=== PATIENT | female | born 1950 | race Caucasian/White ===

== ENCOUNTER → 2019-08-15 | Outpatient (CLI) | payer MEDICARE, OTHER ==
[~2019-08-15] MED LIST: CRESTOR10 MG PO; DIPH25CA58 PO; HYDR10TA2 PO; LISI1TAB37 PO; VITA50004 PO
== END | disposition home or self-care (01) ==
LOC: LAB 15:00
PROVIDERS: ATTEND Registered Nurse
DX: Z11.59 Encounter for screening for other viral diseases (principal)
CPT/HCPCS: U0003-CS

== ENCOUNTER → 2019-08-19 | Day surgery (SDC) | payer MEDICARE, OTHER ==
[~2019-08-19] MED LIST changes: +BALANCED SALT IRRIG OPHTH SOLN 15 ML BOTTLE. IRR ONE; +CATARACT OPHTH GEL 0.5 ML SYRINGE. OS ONE; +CHONDROIT-SOD-HYALURONATE KIT. OS ONE; +EPINEPHrine AMPULE 0.5 MG in BALANCED SALT IRRIG SOLN PLUS 500 ML IO ONE; +ERYTHROMYCIN 0.5% OPHTH OINTMENT 1GM TUBE. OS ONE; +HYALURONIDASE 75UNITS in LIDOCAINE 2% PF OPHTH 10 ML SYRINGE. OS ONE; +IPRATRPIUM/ALBUTEROL 0.5/2.5MG 3 ML NEBU. NEB PRN; +IV RINGERS SOLUTION,LACTATED 1,000 ML IV SCH; +KETOROLAC TROMETHAMINE 0.5% OPHTH SOLUTION BOTTLE. ONE; +KETOROLAC TROMETHAMINE 0.5% OPHTH SOLUTION BOTTLE. OS SCH; +POVIDONE-IODINE 5% OPHTH SOLUTION 30ML BOTTLE. OS ONE; +PROPOFOL 10,000 MCG/ML (20ML) VIAL IV ONE; +TETRACAINE 0.5% OPHTH SOLUTION 4ML BOTTLE. OS ONE; +TETRACAINE 0.5% OPHTH SOLUTION 4ML BOTTLE. OU ONE; +TOBRAMYCIN 0.3% OPHTH SOLUTION 5ML BOTTLE. OS SCH; +prednisoLONE ACETATE 1% OPHTH SUSPENSION 5ML BOTTLE. ONE; +prednisoLONE ACETATE 1% OPHTH SUSPENSION 5ML BOTTLE. OS SCH
[2019-08-19] MEDS: TOBRAMYCIN 0.3% OPHTH SOLUTION 5ML BOTTLE. OS SCH ×3 (09:48→09:54)
--- NOTE | 2019-08-19 10:30 | PDOC4 ---
Phaco IOL/Cataract/OS Date of Procedure: Aug 19, 2019 Preoperative Diagnosis: Senile Cataract, Left Eye Postoperative Diagnosis: Senile Cataract, Left Eye Anesthesia: Local (Block) with monitored anesthesia care Surgeon: Tsering Ni D.O. Procedure: Left Phacoemulsification with Intraocular Lens Implant Findings: Senile Cataract Indications: Worsening vision interfering with patient's lifestyle Narrative: After discussing the risks, complications and alternatives, including but not limited to loss of vision, infection, bleeding, swelling, anesthetic reaction, capsule rupture with vitreous loss, etc., the patient was given a peribulbar block under mild IV sedation and cardiac monitoring. Pressure was applied to the eye for approximately 10 minutes. The patient was transferred to the main operating room and was prepped and draped in the usual sterile fashion and positioned under the microscope. A lid speculum was placed. A temporal clear corneal incision was made with a keratome and viscoelastic was injected into the eye. A side port incision was made. A continuous tear capsulorrhexis was performed, then hydrodissection was accomplished with balanced salt solution. The phacoemulsification needle was placed in the eye and the nucleus was emulsified. The remaining cortical material was removed with the irrigation and aspiration apparatus. The capsule was polished as needed. The posterior capsule was noted to be clean and intact. Viscoelastic was injected into the eye inflating the capsular bag. An intraocular lens was injected into the eye, unfolding as desired and was positioned in the capsular bag. The viscoelastic was aspirated from the eye. The wound edges were hydrated with balanced salt solution and there were no leaks. Viscoelastic was injected over the limbal incisions. Antibiotic and steroid were placed on the eye. The lid speculum was removed, the eye patched shut and a [place] shield applied. There were no complications and the patient was taken to the PACU in good condition. TSERING NI DO Aug 19, 2019 10:30
[2019-08-19 10:48] VITALS: BP 135/87
== END | disposition home or self-care (01) ==
LOC: SURG 08:56
PROVIDERS: ATTEND Ophthalmology
DX: H25.89 Other age-related cataract (principal)
CPT/HCPCS: 66984; J0171; J2704; V2632

== ENCOUNTER 2020-04-05 14:17 | Inpatient (IN) | payer MEDICARE, OTHER ==
[~2020-04-05] VITALS: Ht 160 cm; Wt 102.0 kg
[~2020-04-05 14:17] MED LIST changes: -BALANCED SALT IRRIG OPHTH SOLN 15 ML BOTTLE. IRR ONE; -CATARACT OPHTH GEL 0.5 ML SYRINGE. OS ONE; -CHONDROIT-SOD-HYALURONATE KIT. OS ONE; -EPINEPHrine AMPULE 0.5 MG in BALANCED SALT IRRIG SOLN PLUS 500 ML IO ONE; -ERYTHROMYCIN 0.5% OPHTH OINTMENT 1GM TUBE. OS ONE; -HYALURONIDASE 75UNITS in LIDOCAINE 2% PF OPHTH 10 ML SYRINGE. OS ONE; -IPRATRPIUM/ALBUTEROL 0.5/2.5MG 3 ML NEBU. NEB PRN; -IV RINGERS SOLUTION,LACTATED 1,000 ML IV SCH; -KETOROLAC TROMETHAMINE 0.5% OPHTH SOLUTION BOTTLE. ONE; -KETOROLAC TROMETHAMINE 0.5% OPHTH SOLUTION BOTTLE. OS SCH; -POVIDONE-IODINE 5% OPHTH SOLUTION 30ML BOTTLE. OS ONE; -PROPOFOL 10,000 MCG/ML (20ML) VIAL IV ONE; -TETRACAINE 0.5% OPHTH SOLUTION 4ML BOTTLE. OS ONE; -TETRACAINE 0.5% OPHTH SOLUTION 4ML BOTTLE. OU ONE; -TOBRAMYCIN 0.3% OPHTH SOLUTION 5ML BOTTLE. OS SCH; -prednisoLONE ACETATE 1% OPHTH SUSPENSION 5ML BOTTLE. ONE; -prednisoLONE ACETATE 1% OPHTH SUSPENSION 5ML BOTTLE. OS SCH
[2020-04-05] MEDS ORDERED: IV NORMAL SALINE 1,000ML 1,000 ML IV ONE (16:15)
--- NOTE | 2020-04-05 16:41 | RAD ---
EXAM: CT Abdomen and Pelvis without IV contrast INDICATION: Reason: vomiting / Spl. Instructions: / History: TECHNIQUE: Multi-detector row CT images were acquired from the lung bases through the abdomen and pel vis without the use of IV contrast. Sagittal and coronal images were acquired from the transaxial eileen a. All CT scans performed at this facility utilize dose optimization techniques as appropriate to the exam, including the following: Automated exposure control and adjustment of the mA and/or KV accordi ng to patient size (this includes techniques or standardized protocols for targeted exams where dose is indication/reason for exam). ORAL CONTRAST: None COMPARISON: None FINDINGS: The absence of IV contrast limits evaluation of soft tissue pathology. LOWER CHEST: Calcified granuloma in the medial right lower lung. LIVER: Fatty BILIARY SYSTEM: Gallbladder is unremarkable. Bile ducts are not dilated. PANCREAS: Unremarkable SPLEEN: Scattered splenic calcifications. No splenomegaly or mass identified. ADRENALS: Unremarkable KIDNEYS & URETERS: Unremarkable BLADDER: Incompletely bladder distention resulting in wall thickening. REPRODUCTIVE ORGANS: Unremarkable GASTROINTESTINAL: There are multiple small bowel loops that appear to cluster against the uterine fun dus but no findings of bowel obstruction, perforation or acute inflammation are seen. Small hiatal he rnia is present There are scattered colonic diverticuli. The appendix is normal. MESENTERY/PERITONEUM/RETROPERITONEUM: Unremarkable VASCULAR: Unremarkable LYMPH NODES: No adenopathy OSSEOUS & SOFT TISSUES: Multilevel spinal degenerative spondylosis with mild rightward convexity sco liotic curvature, apex at L2-L3. Right total hip arthroplasty. IMPRESSION: Nonspecific clustering of small bowel loops in the pelvis against the uterine fundus without findings of bowel obstruction or acute inflammation. If there is a high index of suspicion for a partial kenya l obstruction, small bowel follow-through could be pursued with CT with oral contrast. Otherwise no a cute findings in the abdomen or pelvis shown on noncontrast CT. Discussed with Brittany Boo by telephone at 4:26 PM on 04/05/2020 Electronically signed by: Tosha Simpson MD (04/05/2020 4:39 PM) [id number]
--- NOTE | 2020-04-05 16:42 | RAD ---
EXAM: XR CHEST 2V INDICATION: Reason: weakness / Spl. Instructions: / History: . TECHNIQUE: PA and lateral views COMPARISON: 12/20/2004 FINDINGS: The heart size is normal. The great vessels appear unremarkable. There is no hilar or mediastinal mass. The lungs are clear. There is no pleural effusion or pneumothorax. There are no significant osseous abnormalities. IMPRESSION: No active cardiopulmonary disease. Electronically signed by: Tosha Simpson MD (04/05/2020 4:40 PM) [id number]
[2020-04-05 17:04] LABS: BASO % 0 % (0-3); CALCIUM 11.1 mg/dL (8.5-10.1); CREATININE 1.4 mg/dL (0.6-1.0); EOS % 0 % (0-3); GFR 37.3; HEMATOCRIT 39.6 % (36.0-47.0); HEMOGLOBIN 13.2 g/dL (12.0-15.5); LYMPH % 10 % (24-48); MEAN CORPUSCULAR HEMOGLOBIN 34 pg (25-35); MEAN CORPUSCULAR HGB CONC 34 g/dL (31-37); MEAN CORPUSCULAR VOLUME 102 fL (79-100); MONO # 1.1 x10^3/uL (0.0-1.1); MONO % 12 % (0-9); NEUT # 7.4 x10^3uL (1.8-7.7); NEUT % 78 % (31-73); PLATELET COUNT 164 x10^3/uL (140-400); POTASSIUM 4.1 mmol/L (3.5-5.1); RED BLOOD COUNT 3.87 x10^6/uL (3.50-5.40); RED CELL DISTRIBUTION WIDTH 13.6 % (11.5-14.5); WHITE BLOOD COUNT 9.5 x10^3/uL (4.0-11.0)
[2020-04-05 17:09] LABS: BACTERIA,URINE FEW /HPF (0-FEW); BILIRUBIN,URINE SMALL (NEG); CLARITY,URINE HAZY; COLOR,URINE AMBER; GLUCOSE,URINE NEG (NEG); NITRITE,URINE POS (NEG); SQUAMOUS EPITHELIAL CELL,UR MANY /LPF
[2020-04-05 17:10] LABS: ALBUMIN 4.1 g/dL (3.4-5.0); ALBUMIN/GLOBULIN RATIO 1.1 (1.0-1.7); TOTAL BILIRUBIN 1.2 mg/dL (0.2-1.0); TOTAL PROTEIN 7.9 g/dL (6.4-8.2)
--- NOTE | 2020-04-05 17:15 | PHYS DOC ---
Past History Past Medical History: Hypertension, Other Additional Past Medical Histor: Heart Murmur, High Cholesterol Past Surgical History: Other Additional Past Surgical Histo: Lap band removal in 2016 Alcohol Use: Heavy General Adult EDM: Chief Complaint: MULTIPLE COMPLAINTS HPI: HPI: Patient is a 69-year-old female who presents with burning mouth pain for the past month. Patient states "I am unable to eat anything because it hurts too bad in my mouth". Patient reports intermittent nausea and vomiting. Patient states that she has lost 35 pounds this month due to not being able to eat. Patient denies any recent illness. Review of Systems: Review of Systems: Constitutional: Denies fever or chills Eyes: Denies change in visual acuity HENT: Denies nasal congestion or sore throat, burning pain in mouth Respiratory: Denies cough or shortness of breath Cardiovascular: Denies chest pain or edema GI: Denies abdominal pain, nausea, vomiting, bloody stools or diarrhea : Denies dysuria Musculoskeletal: Denies back pain or joint pain Integument: Denies rash Neurologic: Denies headache, focal weakness or sensory changes Endocrine: Denies polyuria or polydipsia Lymphatic: Denies swollen glands Psychiatric: Denies depression or anxiety Current Medications: Current Meds: Current Medications Medications (Trade) Dose Ordered Sig/Shiva Start Time Stop Time Status Last Admin Dose Admin Sodium Chloride 1,000 ml @ 1,000 mls/hr 1X ONCE 04/05/20 16:15 04/05/20 17:14 04/05/20 15:45 1,000 MLS/HR Allergies: Allergies: Allergies Coded Allergies Type Severity Reaction Last Updated Verified Sulfa (Sulfonamide Antibiotics) Allergy Intermediate Rash 08/11/19 Yes ciprofloxacin Allergy Intermediate rash 08/15/19 Yes Penicillins Allergy Mild childhood 08/15/19 Yes Physical Exam: PE: Constitutional: Well developed, well nourished, no acute distress, non-toxic appearance. [] HENT: Normocephalic, atraumatic, bilateral external ears normal, oropharynx moist, no oral exudates Eyes: PERRLA, EOMI, conjunctiva normal, no discharge. [] Neck: Normal range of motion, no tenderness, supple, no stridor. [] Cardiovascular:Heart rate regular rhythm, no murmur [] Lungs & Thorax: Bilateral breath sounds clear to auscultation [] Abdomen: Bowel sounds normal, soft, no tenderness, no masses, no pulsatile masses. [] Skin: Warm, dry, no erythema, no rash. [] Back: No tenderness, no CVA tenderness. [] Extremities: No tenderness, no cyanosis, no clubbing, ROM intact, no edema. [] Neurologic: Alert and oriented X 3, normal motor function, normal sensory function, no focal deficits noted. [] Psychologic: Affect normal, judgement normal, mood normal. [] Current Patient Data: Vital Signs: Vital Signs Date Time Temp Pulse Resp B/P (MAP) Pulse Ox O2 Delivery O2 Flow Rate FiO2 04/05/20 16:30 98 20 97/46 (63) 100 Room Air 04/05/20 14:34 97.7 EKG: EKG: [] Radiology/Procedures: Radiology/Procedures: []EXAM: XR CHEST 2V INDICATION: Reason: weakness / Spl. Instructions: / History: . TECHNIQUE: PA and lateral views COMPARISON: 12/20/2004 FINDINGS: The heart size is normal. The great vessels appear unremarkable. There is no hilar or mediastinal mass. The lungs are clear. There is no pleural effusion or pneumothorax. There are no significant osseous abnormalities. IMPRESSION: No active cardiopulmonary disease. Electronically signed by: Tosha Simpson MD (04/05/2020 4:40 PM) [id number] EXAM: CT Abdomen and Pelvis without IV contrast INDICATION: Reason: vomiting / Spl. Instructions: / History: TECHNIQUE: Multi-detector row CT images were acquired from the lung bases through the abdomen and pelvis without the use of IV contrast. Sagittal and co coni images were acquired from the transaxial data. All CT scans performed at this facility utilize dose optimization techniques as appropriate to the exam, including the following: Automated exposure control and adjustment of the mA and/or KV according to patient size (this includes techniques or standardized protocols for targeted exams where dose is indication/reason for exam). ORAL CONTRAST: None COMPARISON: None FINDINGS: The absence of IV contrast limits evaluation of soft tissue pathology. LOWER CHEST: Calcified granuloma in the medial right lower lung. LIVER: Fatty BILIARY SYSTEM: Gallbladder is unremarkable. Bile ducts are not dilated. PANCREAS: Unremarkable SPLEEN: Scattered splenic calcifications. No splenomegaly or mass identified. ADRENALS: Unremarkable KIDNEYS & URETERS: Unremarkable BLADDER: Incompletely bladder distention resulting in wall thickening. REPRODUCTIVE ORGANS: Unremarkable GASTROINTESTINAL: There are multiple small bowel loops that appear to cluster against the uterine fundus but no findings of bowel obstruction, perforation or acute inflammation are seen. Small hiatal hernia is present There are scattered colonic diverticuli. The appendix is normal. MESENTERY/PERITONEUM/RETROPERITONEUM: Unremarkable VASCULAR: Unremarkable LYMPH NODES: No adenopathy OSSEOUS & SOFT TISSUES: Multilevel spinal degenerative spondylosis with mild rightward convexity scoliotic curvature, apex at L2-L3. Right total hip arthroplasty. IMPRESSION: Nonspecific clustering of small bowel loops in the pelvis against the uterine fundus without findings of bowel obstruction or acute inflammation. If there is a high index of suspicion for a partial bowel obstruction, small bowel follow- through could be pursued with CT with oral contrast. Otherwise no acute findings in the abdomen or pelvis shown on noncontrast CT. Discussed with Brittany Boo by telephone at 4:26 PM on 04/05/2020 Electronically signed by: Tosha Simpson MD (04/05/2020 4:39 PM) [id number] Heart Score: Risk Factors: Risk Factors: DM, Current or recent (<one month) smoker, HTN, HLP, family history of CAD, obesity. Risk Scores: Score 0 - 3: 2.5% MACE over next 6 weeks - Discharge Home Score 4 - 6: 20.3% MACE over next 6 weeks - Admit for Clinical Observation Score 7 - 10: 72.7% MACE over next 6 weeks - Early Invasive Strategies Course & Med Decision Making: Course & Med Decision Making Pertinent Labs and Imaging studies reviewed. (See chart for details) []Patient is a 69-year-old female who presents with burning mouth pain for the past month. Patient states "I am unable to eat anything because it hurts too bad in my mouth". Patient reports intermittent nausea and vomiting. Patient states that she has lost 35 pounds this month due to not being able to eat. Patient denies any recent illness. CT Abdomen and Pelvis shows no acute findings in the abdomen or pelvis shown on noncontrast CT. Lactic 3.3. Patient given 1L bolus NS. UA positive for leuks and nitrates. 1g Rocephin given. Spoke with patient and about admit to hospital. Patient and both agree with the plan for patient to be admitted. Spoke with regarding admit. Patient admitted for Dehydration, Ketonuria, UTI. Dragon Disclaimer: Johnny Disclaimer: This electronic medical record was generated, in whole or in part, using a voice recognition dictation system. Departure Departure: Impression: Primary Impression: Dehydration Additional Impression: UTI (urinary tract infection) Qualified Codes: N30.00 - Acute cystitis without hematuria Disposition: 01 [facility] HOME SELF CARE/HOMELESS Admitting Physician: Alexus Galicia Condition: STABLE Referrals: VIJAY MARTIN (PCP) MIGNON BOO APRN Apr 05, 2020 17:15
[2020-04-05] MEDS ORDERED: METOCLOPRAMIDE HCL 10 MG/2 ML VIAL. IVP ONE (17:30)
[2020-04-05] MEDS ORDERED: FAMOTIDINE 20 MG TABLET PO ONE (17:30)
[2020-04-05 17:47] LABS: BARBITURATES NEG (NEG); BENZODIAZEPINES NEG (NEG); CANNABINOIDS NEG (NEG); COCAINE NEG (NEG); METHADONE NEG (NEG); OPIATES NEG (NEG); PHENCYCLIDINE NEG (NEG)
[2020-04-05 17:52] LABS: AMPHETAMINE/METHAMPHETAMINE NEG (NEG)
[2020-04-05] MEDS ORDERED: IV NORMAL SALINE 50ML 50 ML ONE (17:52)
[2020-04-05] MEDS ORDERED: cefTRIAXone SODIUM 1 GM VIAL ONE (17:52)
[2020-04-05] MEDS ORDERED: KETOROLAC 15 MG/ML VIAL. IVP ONE (18:00)
--- NOTE | 2020-04-05 19:34 | EKG ---
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
[2020-04-05 20:49] VITALS: BP 98/60
[2020-04-05 22:45] VITALS: BP 92/61
--- NOTE | 2020-04-06 01:17 | NUR ---
Pt admitted to [facility] via EMS accompanied by Nursing Retail General Manager. Pt ambulated from gurney to bed w/ assistance from staff member. Pt AOx4. VS obtained. Pt denies any pain at this time. POC discussed w/ verbalized understanding. Call light in reach. Will continue to monitor.
[2020-04-06 05:54] VITALS: BP 89/61
[2020-04-06] MEDS: PRENATAL MULTIVITAMIN TABLET. PO SCH (13:00)
[2020-04-06 14:44] VITALS: BP 71/45
[2020-04-06] MEDS ORDERED: LORazepam 1 MG TABLET PO PRN ×2 (15:00)
[2020-04-06] MEDS: FOLIC ACID IV SCH (15:00)
[2020-04-06] MEDS ORDERED: chlordiazePOXIDE HCL 25 MG CAPSULE PO PRN ×2 (15:00)
[2020-04-06] MEDS ORDERED: MULTIVITAMIN with MINERAL TABLET. PO SCH (15:00)
[2020-04-06] MEDS: THIAMINE IV SCH (15:00)
[2020-04-06] MEDS: NORMAL SALINE IV SCH (15:00)
[2020-04-06] MEDS: IV NORMAL SALINE 1,000ML 1,000 ML IV SCH (15:00)
[2020-04-06] MEDS ORDERED: IV NORMAL SALINE 1,000ML 1,000 ML IV ONE (15:15)
--- NOTE | 2020-04-06 15:39 | NUR ---
NURSING NOTE HYPOTENSION ORDER FOR 1 L NORMAL SALINE BOLUS FROM DR MCKENNA. START ON BANANA BAG. THEN CONTINUE WITH NS AT 100MLS/HR. ELOINA ANDINO.
--- NOTE | 2020-04-06 17:25 | HP ---
ADMIT DATE: 04/05/2020 HISTORY OF PRESENT ILLNESS: The patient is a 69-year-old female patient who came to the Emergency Room complaining of burning mouth pain and tongue for the last 4-5 weeks. The patient stated that "I am unable to eat anything because it hurts too bad" in her mouth. She reported intermittent nausea and vomiting. The patient states that she has lost 35 pounds this month due to not being able to eat. Denied any recent illness. The patient was extensively investigated in the Emergency Room and was found to be dehydrated and hyponatremic. Her calcium was high also at 11.1. Her urinalysis was essentially unremarkable and toxic screen was negative. She was admitted for rehydration and urinary tract infection. PAST MEDICAL HISTORY: Significant for hypertension and hyperlipidemia. She has also chronic sinusitis. PAST SURGICAL HISTORY: Significant for sinus surgery, lap band in 2006 that was removed in 2015. She has right total hip arthroplasty. ALLERGIES: SHE IS ALLERGIC TO PENICILLIN, SULFA DRUGS, CIPRO, DOCTORS AND NEEDLES. MEDICATIONS: She is currently on the following medications: She is on diphenhydramine 25 mg at bedtime, lisinopril/hydrochlorothiazide ____/12.5 mg daily, hydroxyzine 10 mg 1-2 times a day, vitamin D and folic acid 1 tablet once a day and Crestor 10 mg at bedtime. FAMILY HISTORY: She has one brother older and alive, but does not know anything much about him. Her father of colon cancer and mother of multiple TIAs, intracranial hemorrhage and hip fracture. SOCIAL HISTORY: She is , has no children. She never smoked. She drinks 1-2 bottles with her daily; however, over the last 4 or 5 weeks, she has only been able to drink 2-3 glasses of wine. She does not use any drugs. 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 REVIEW OF SYSTEMS: The patient denied any blurring of vision, cataract, glaucoma or macular degeneration. Denied any earache, tinnitus or sensorineural deafness. Denied any nosebleeds, stuffy nose or postnasal drip. Did complain of sore tongue and sore mouth. Did complain of burping and retching, but denied any diarrhea or constipation. Denied any hematemesis, melena or hematochezia. Denied any dysuria, frequency or hematuria. Denied any chest pain, shortness of breath, orthopnea, paroxysmal nocturnal dyspnea. Denied any cough, phlegm or hemoptysis. PHYSICAL EXAMINATION: GENERAL: On arrival to the Emergency Room, the patient looked well and was clearly in no apparent respiratory distress. No pallor, jaundice, cyanosis or thyromegaly. No jugular venous distention or limb edema. VITAL SIGNS: Her heart rate was 108, blood pressure was 113/55, temperature was 97.7, respiratory rate 20, and oxygen saturation was 98%. HEAD, EYES, EARS, NOSE AND THROAT: Normocephalic, atraumatic. NECK: Supple. HEART: Showed normal first and second heart sounds. No gallop, rub or murmur. CHEST: Clear to auscultation. No crepitation or rhonchi. ABDOMEN: Distended, soft, nontender. NEUROLOGIC: She is awake, alert, responding appropriately. All cranial nerves intact. EXTREMITIES: She moves extremities without difficulty. She ambulates without assistance or assistive devices. SKIN: Examination of the skin showed that she has psoriatic plaques on her elbows and also both knees. These are very mild. She is on ____ that she takes every 2 weeks. LABORATORY DATA: Her lab work on admission showed that her white cell count was 9500, hemoglobin 13, hematocrit 39, MCV 102 and platelet count of 164,000 with normal manual differential. Her chemistry showed a serum sodium 130, potassium 4.1, chloride 85, bicarbonate 24, anion gap of 21, BUN 28, creatinine 1.4, estimated GFR was 37 mL per minute. Her glucose was 84, lactic acid was 3.3, calcium was 11.1. Total bilirubin 1.2. AST and ALT are elevated. Alkaline phosphatase was normal. Total protein was 7.9. Albumin was 4.1, lipase 154. Urinalysis showed the urine was hazy with a pH of 6, specific gravity of 1.030. There was large amount of protein, negative for glucose, small amount of ketones, moderate amount of blood, positive for nitrite, small amount of bilirubin, small amount of leukocyte esterase, 6-10 rbc's, 1-4 wbc's, very few bacteria. Her toxicology screen was essentially negative. She did have chest x-ray, which showed the heart size is normal. The great vessels appeared unremarkable. There is no hilar or mediastinal mass. The lungs are clear. There is no pleural effusion or pneumothorax. There is no significant osseous abnormality. She did have a CT scan of the abdomen without contrast, which showed nonspecific cluster in the small bowel loops in the pelvis against uterine fundus without finding of bowel obstruction or acute inflammation. There is a high index suspicion for a partial bowel obstruction. Small bowel follow through, could be pursued with CT with oral contrast, otherwise no acute finding in the abdomen or pelvis on noncontrast CT. ASSESSMENT AND PLAN: In summary, this is a 69-year-old female patient who came with basically a complaint of burning pain in her mouth and tongue. On examining her buccal mucosa and her tongue, there is no obvious abnormality; however, the patient has been drinking too much wine. According to her, her and herself they drink 1-2 bottles a day, although she has not been able to drink that amount over the last 4 weeks and she was only able to drink 2-3 glasses of wine. She has not been eating or drinking. She obviously continued to take her lisinopril and hydrochlorothiazide and obviously she is dehydrated. She probably has nutritional deficiency. My plan is to start her on a banana bag with multivitamin, thiamine and folic acid to start with and start her on oral vitamins. I will hold her lisinopril and hydrochlorothiazide. I will start her also on alcohol withdrawal protocol. I will continue with IV fluid for dehydration. CALLUM MCKENNA MD DR: SAMI/yomaira JOB#: [id number] / [id number]
[2020-04-06 19:10] VITALS: BP 85/56
[2020-04-06] MEDS: diphenhydrAMINE HCL 25 MG CAPSULE PO SCH (20:53)
[2020-04-06 23:33] VITALS: BP 92/65
[2020-04-07] MEDS: IV NORMAL SALINE 1,000ML 1,000 ML IV SCH (02:45)
[2020-04-07 05:34] VITALS: BP 106/76
[2020-04-07 06:28] LABS: HEMATOCRIT 32.6 % (36.0-47.0); HEMOGLOBIN 10.8 g/dL (12.0-15.5); RED BLOOD COUNT 3.17 x10^6/uL (3.50-5.40); RED CELL DISTRIBUTION WIDTH 13.2 % (11.5-14.5); WHITE BLOOD COUNT 3.9 x10^3/uL (4.0-11.0)
[2020-04-07 06:52] LABS: ALBUMIN/GLOBULIN RATIO 0.9 (1.0-1.7); CREATININE 1.2 mg/dL (0.6-1.0); GFR 44.5; POTASSIUM 3.3 mmol/L (3.5-5.1); TOTAL BILIRUBIN 0.7 mg/dL (0.2-1.0); TOTAL PROTEIN 6.4 g/dL (6.4-8.2)
[2020-04-07] MEDS: NORMAL SALINE IV SCH (08:53)
[2020-04-07] MEDS: FOLIC ACID IV SCH (08:53)
[2020-04-07] MEDS: THIAMINE IV SCH (08:53)
[2020-04-07] MEDS: PRENATAL MULTIVITAMIN TABLET. PO SCH (08:53)
--- NOTE | 2020-04-07 09:52 | PN ---
DATE: 04/07/2020 ATTENDING PHYSICIAN: Dr. Galicia. SUBJECTIVE: The patient's mouth pain is doing better. She has less burning sensation. She is feeling better with hydration. Her lisinopril, hydrochlorothiazide has been held. OBJECTIVE FINDINGS: VITAL SIGNS: Blood pressure this morning is improved to 106/74, yesterday it was in the 70s systolic. Pulse rate is down to 88, temperature is 97.6 degrees Fahrenheit, her oxygen saturation 98% on room air. HEENT: Head is without trauma. Pupils are reactive. Sclerae nonicteric. Oropharynx is clear. I examined the inside of her mouth, there is minimal stomatitis, but improved. There are no open lesions or sores. NECK: Supple, no bruits. LUNGS: Clear. CARDIOVASCULAR: Showed regular heart tones. No gallops. ABDOMEN: Soft, obese, protuberant. No organomegaly. Bowel sounds were hypoactive. EXTREMITIES: Showed trace edema. NEUROLOGIC: Focally intact. Speech is fluent. ASSESSMENT: 1. A 69-year-old female with dehydration, aggravated by blood pressure meds and diuretics. 2. Angular stomatitis, improved. 3. Alcoholism. 4. Vitamin deficiency. PLAN: 1. Advance diet as tolerated. 2. We can discontinue her IV hydration. 3. Hydrochlorothiazide and lisinopril on hold. 4. Tentative discharge plan for tomorrow. 5. Serial chemistries. JADE RASHID MD DR: ADRIENNE/yomiara JOB#: [id number] / [id number]
[2020-04-07 10:55] VITALS: BP 92/66
[2020-04-07 14:50] VITALS: BP 96/58
[2020-04-07 19:59] VITALS: BP 94/64
[2020-04-07 22:13] VITALS: BP 111/66
[2020-04-07] MEDS: diphenhydrAMINE HCL 25 MG CAPSULE PO SCH (22:26)
[2020-04-08 05:23] VITALS: BP 85/57
[2020-04-08 07:36] VITALS: BP 94/65
[2020-04-08 10:56] VITALS: BP 91/63
--- NOTE | 2020-04-08 11:44 | DS ---
DATE OF DISCHARGE: 04/08/2020 ATTENDING PHYSICIANS: Dr. Galicia/. FINAL DISCHARGE DIAGNOSES: 1. Dehydration. 2. Essential hypertension, normotensive. 3. Vitamin D deficiency from alcohol use. 4. Hyperlipidemia. HISTORY AND PHYSICAL: This is a 69-year-old female admitted to the ED with burning sensation in her mouth, unable to eat. She was mildly dehydrated and hyponatremic, admitted for further treatment and evaluation. PHYSICAL EXAMINATION: Please see the dictated note. PERTINENT LABORATORY AND X-RAY STUDIES: Admission hemoglobin was 13.2 g/dL, white count 9500, repeated was down to 10.8 due to dilutional factors. Sodium 130, replaced up to 135 mEq. Creatinine was 1.4, down to 1.2 mg percent. Urine drug screen was clear. COURSE IN THE HOSPITAL: The patient was admitted. She was started on IV hydration, banana bag and multivitamin. She did well. Pressures improved, we still held her lisinopril, hydrochlorothiazide. By the fourth hospital day, her blood pressure is improved. She was feeling better. Pulse and temperature were normal. She was ready for discharge. At this time, I recommend holding her blood pressure meds. She should take a multivitamin and she will follow up with her PCP at the regular scheduled time. The patient was then discharged from our hospital in stable condition with explicit instructions and followup care. JADE RASHID MD DR: ADRIENNE/yomaira JOB#: [id number] / [id number]
--- NOTE | 2020-04-08 12:19 | NUR ---
PATIENT IS DISCHARGED HOME, DISCHARGE INSTRUCTION REVIEWED, PATIENT VERBALIZED UNDERSTANDING. PATIENT LEFT ROOM VIA W/C ACCOMP BY STAFF. PATIENT IS TAKEN HOME BY FRIEND VIA PERSONAL VEHICLE.
[2020-04-12] MEDS ORDERED: THIAMINE 100 MG TABLET. PO SCH (09:00)
[2020-04-12] MEDS ORDERED: FOLIC ACID 1 MG TABLET PO SCH (09:00)
== END 2020-04-08 12:20 | disposition home or self-care (01) | DRG 641 ==
LOC: ER 14:17 → 1 SOUTH 18:36
PROVIDERS: ADMIT Internal Medicine; ATTEND Internal Medicine
DX: E86.0 Dehydration (principal); N39.0 Urinary tract infection, site not specified; E87.1 Hypo-osmolality and hyponatremia; I10 Essential (primary) hypertension; K13.0 Diseases of lips; E55.9 Vitamin D deficiency, unspecified; Z96.641 Presence of right artificial hip joint; J32.9 Chronic sinusitis, unspecified; E78.00 Pure hypercholesterolemia, unspecified; E78.5 Hyperlipidemia, unspecified; Z80.0 Family history of malignant neoplasm of digestive organs; Z98.84 Bariatric surgery status; Z88.1 Allergy status to other antibiotic agents; Z88.0 Allergy status to penicillin; Z88.2 Allergy status to sulfonamides
CPT/HCPCS: 36415; 71046; 74150; 80053; 80307; 81001; 83605; 83690; 85025; 85027; 87077; 87086; 87186; 93005; 96361; 96365; 96366; 96375; J0696; J1885; J2765; Q0163; 99285-25; J7030

== ENCOUNTER 2020-04-16 11:40 | Emergency (ER) | payer MEDICARE, OTHER ==
[~2020-04-16] VITALS: Ht 160 cm; Wt 102.0 kg
--- NOTE | 2020-04-16 12:41 | RAD ---
CT HEAD/BRAIN WO History: Reason: pain, fall / Spl. Instructions: / History: Comparison: None. Technique: Noncontrast CT imaging was performed of the head. Findings: No intracranial hemorrhage. No mass effect. No hydrocephalus. Extra-axial spaces are unremarkable. Left lens replacement. Fluid level and circumferential thickening left maxillary sinus. No acute calv arial fracture. Impression: 1. No acute intracranial abnormality. 2. Fluid level in the left maxillary sinus. Correlate for acute sinusitis. ----- Exposure: One or more of the following individualized dose reduction techniques were utilized for thi s examination: 1. Automated exposure control 2. Adjustment of the mA and/or kV according to patient size 3. Use of iterative reconstruction technique. Electronically signed by: Faustino Pérez MD (04/16/2020 12:39 PM) [facility]
--- NOTE | 2020-04-16 12:54 | RAD ---
XR BILATERAL HIP (WITH OR WITHOUT PELVIS) LEFT 2 VIEWS History: Pain, fall Comparison: CT abdomen 04/05/2020. Technique: AP pelvis with coned-down AP and crosstable lateral views of the left hip. Findings: Acute fracture extending through the left pubic tubercle, body and inferior pubic ramus with approxim ately 6 mm displacement at the inferior pubic ramus and suspected combination. Right total hip arthroplasty in expected position. Dystrophic calcification superior to the greater t rochanter redemonstrated. Minimal degenerative changes of the left proximal femur without fracture or dislocation identified. Crosstable lateral is limited by patient habitus. Degenerative changes in sc oliosis of the lumbar spine. Multiple gas-filled loops of bowel in the lower abdomen. Impression: 1. Acute fracture of the left pubic tubercle, body and inferior pubic ramus with approximately 6 mm displacement inferior pubic ramus and suspected comminution. Electronically signed by: Faustino Pérez MD (04/16/2020 12:51 PM) [facility]
--- NOTE | 2020-04-16 14:04 | PHYS DOC ---
Past History Past Medical History: High Cholesterol, Hypertension, Other Additional Past Medical Histor: Heart Murmur, High Cholesterol , stomatitis Past Surgical History: Hip Replacement, Other Additional Past Surgical Histo: Lap band removal in 2016, sinus Alcohol Use: Heavy Adult General Chief Complaint Chief Complaint: MECHANICAL FALL HPI HPI Patient is a 69-year-old female who presents to the emergency room after having a fall at home. Patient states that she was using her walker when she slipped and fell losing her balance. She tried to crawl on the floor to pull herself up but was unable to and had to wait for her to get home to help her off the floor. Her also had a difficult time getting her off the floor so they called 911. Paramedics attempted to help the patient get off the floor, however due to severe hip pain she was unsuccessful. They then brought her here to the emergency room for evaluation for her pain. Patient states the pain is in the back of her hip. It is on the left side. She also has a left arm scrape. She did hit her head when she fell but denies losing consciousness. She does not have any kind of headache. She does not have any numbness or weakness. She is having a difficult time lifting her leg or walking due to hip pain. Review of Systems Review of Systems Complete ROS is negative unless otherwise documented in HPI Allergies Allergies Allergies Coded Allergies Type Severity Reaction Last Updated Verified Sulfa (Sulfonamide Antibiotics) Allergy Intermediate Rash 04/16/20 Yes ciprofloxacin Allergy Intermediate rash 04/16/20 Yes Penicillins Allergy Mild childhood 04/16/20 Yes Physical Exam Physical Exam General: Awake, alert, NAD. Well Nourished, well hydrated. Cooperative HEENT: Atraumatic, EOMI, PERRL, airway patent, moist oral mucosa, no nasal septal hematoma, no facial crepitus or deformity Neck: Supple, trachea midline, no C-spine tenderness Respiratory: CTA bilaterally, normal effort, no wheezing/crackles, no crepitus CV: RRR, no murmur, cap refill <2, 2+ bilateral radial/DP pulses GI: Soft, nondistended, nontender, no masses MSK: Pelvis is stable, left-sided tenderness Skin: Warm, dry, abrasion to the left elbow Neuro: A&O x3, speech NL, sensory and motor grossly intact, no focal deficits Psych: Normal affect, normal mood, not suicidal or homicidal Current Patient Data Vital Signs Vital Signs Date Time Temp Pulse Resp B/P (MAP) Pulse Ox O2 Delivery O2 Flow Rate FiO2 04/16/20 11:40 97.9 113 22 143/83 (103) 97 EKG EKG [] Radiology/Procedures Radiology/Procedures [] Heart Score Risk Factors: Risk Factors: DM, Current or recent (<one month) smoker, HTN, HLP, family history of CAD, obesity. Risk Scores: Risk Factors: DM, Current or recent (<one month) smoker, HTN, HLP, family history of CAD, obesity. Course & Med Decision Making Course & Med Decision Making Pertinent Labs and Imaging studies reviewed. (See chart for details) Patient is a 69-year-old female who presents to the emergency room after a fall from standing. Due to head trauma and the patient greater than 65 years old we are unable to use CT Gypsy head rules to rule out intracranial hemorrhage. CT will be done here in the emergency room. X-rays will also be ordered. CT is unremarkable. X-rays are significant for multiple pelvic fractures. Patient would like to continue care with her orthopedic surgeon who did her hip replacement. I have called and talked to him and he is willing to evaluate her at [facility]. Patient will be transferred to outside facility for evaluation. X-ray's were sent over. CT of the pelvis was done per his recommendation. I have discussed all the test results with the patient. They are in in agreement with the transfer to [facility] Disclaimer [facility] Disclaimer This electronic medical record was generated, in whole or in part, using a voice recognition dictation system. Departure Departure: Impression: Primary Impression: Fracture, pelvis closed Additional Impression: Closed head injury Disposition: 02 DC/TRF OTHER SHORT TERM HOS Condition: STABLE Referrals: VIJAY MARTIN (PCP) Problem Qualifiers PRETTY PATRICIO MD Apr 16, 2020 14:04
[2020-04-16] MEDS ORDERED: IV NORMAL SALINE 1,000ML 1,000 ML IV ONE (14:15)
[2020-04-16] MEDS ORDERED: MORPHINE SULFATE 4 MG/ML DISP.SYRIN. IV ONE (14:15)
[2020-04-16 14:28] LABS: BASO % 0 % (0-3); EOS % 0 % (0-3); HEMOGLOBIN 9.9 g/dL (12.0-15.5); LYMPH % 13 % (24-48); MEAN CORPUSCULAR HEMOGLOBIN 34 pg (25-35); MEAN CORPUSCULAR HGB CONC 33 g/dL (31-37); MEAN CORPUSCULAR VOLUME 104 fL (79-100); MONO # 0.5 x10^3/uL (0.0-1.1); MONO % 7 % (0-9); NEUT # 6.4 x10^3uL (1.8-7.7); NEUT % 81 % (31-73); PLATELET COUNT 179 x10^3/uL (140-400); RED BLOOD COUNT 2.89 x10^6/uL (3.50-5.40); RED CELL DISTRIBUTION WIDTH 14.7 % (11.5-14.5)
[2020-04-16] MEDS ORDERED: ONDANSETRON PF 4 MG/2 ML VIAL. IVP ONE (14:30)
[2020-04-16 14:39] LABS: CALCIUM 9.4 mg/dL (8.5-10.1); CREATININE 0.6 mg/dL (0.6-1.0); GFR 99.1; POTASSIUM 3.8 mmol/L (3.5-5.1)
[2020-04-16 14:44] LABS: ALBUMIN 2.9 g/dL (3.4-5.0); ALBUMIN/GLOBULIN RATIO 0.8 (1.0-1.7); TOTAL BILIRUBIN 0.9 mg/dL (0.2-1.0); TOTAL PROTEIN 6.4 g/dL (6.4-8.2)
[2020-04-16 15:45] VITALS: BP 112/88
--- NOTE | 2020-04-16 16:01 | RAD ---
CT pelvis without contrast PQRS statement: CT scans at this facility use dose reduction including either automated exposure cont rol, iterative reconstructions, and /or weight based radiation dosing via mA and kV modification when appropriate to reduce radiation dose to as low as reasonably achievable. HISTORY: Pelvis fracture. FINDINGS: Acute traumatic fracturing of the left pubic bone extending into the medial aspect of the s uperior pubic ramus. No diastases of the pubic symphysis. There is a chronic appearing healed fracture deformity of the anterior cortex of the upper left sacra l ala. Right hip arthroplasty. Left hip osteoarthritis. Pelvic organs unremarkable. Lower lumbar scoliosis, disc bulges and facet spurring and lateral disc osteophyte with spinal canal and neural foraminal luis alberto noses L4-5 and L5-S1. Fatty atrophy and heterotopic ossification of the right gluteus muscles likely due to prior surgery or old trauma. IMPRESSION: Acute traumatic fractures of the left pubic bone. See above. Electronically signed by: Farhad Gutierrez MD (04/16/2020 3:59 PM) [facility]
--- NOTE | 2020-04-19 11:26 | NUR ---
Infection Prevention: [facility] results for test date 04/16 SARS-CoV2 received, NEGATIVE/undetected. Copy of report faxed to Fco Wan RN caring for pt at [facility], fax# [phone].
== END 2020-04-16 17:15 | disposition short-term general hospital (02) ==
LOC: ER 11:40
DX: S32.9XXA Fracture of unspecified parts of lumbosacral spine and pelvis, initial encounter for closed fracture (principal); S09.90XA Unspecified injury of head, initial encounter; S50.312A Abrasion of left elbow, initial encounter; E78.00 Pure hypercholesterolemia, unspecified; I10 Essential (primary) hypertension; F10.20 Alcohol dependence, uncomplicated; Z20.822 Contact with and (suspected) exposure to COVID-19; Z96.649 Presence of unspecified artificial hip joint; Z88.1 Allergy status to other antibiotic agents; Z88.0 Allergy status to penicillin; Y90.9 Presence of alcohol in blood, level not specified; W01.0XXA Fall on same level from slipping, tripping and stumbling without subsequent striking against object, initial encounter; Y93.89 Activity, other specified; Y92.89 Other specified places as the place of occurrence of the external cause; Y99.8 Other external cause status
CPT/HCPCS: 36415; 70450; 72192; 73502; 80053; 85025; 87426; 96361; 96374; 96375; 99285; C9803; J2270; J2405; J7030; U0003

== ENCOUNTER → 2021-01-24 | Outpatient (CLI) | payer MEDICARE, OTHER ==
[~2021-01-24] MED LIST changes: +HYDR10SY16 PO; +multivitamin PO
== END ==
LOC: LAB 11:40
PROVIDERS: ATTEND Ophthalmology
DX: Z01.812 Encounter for preprocedural laboratory examination (principal); U07.1 COVID-19; H26.9 Unspecified cataract
CPT/HCPCS: U0003